=== PATIENT | male | born 1970 | race Caucasian/White ===

== ENCOUNTER 2018-04-01 19:10 | Emergency (ER) | payer BC ==
[~2018-04-01] VITALS: Ht 188 cm; Wt 81.5 kg
[2018-04-01 21:46] LABS: BASOPHILS % (AUTO) 0.2 % (0-1); EOSINOPHILS # (AUTO) 0.1 X10'3 (0-0.9); EOSINOPHILS % (AUTO) 1.6 % (0-6); HEMATOCRIT 42.6 % (42.0-52.0); HEMOGLOBIN 14.9 g/dl (14.0-17.9); LYMPHOCYTES % (AUTO) 11.9 % (21-51); MEAN CORPUSCULAR VOLUME 80.1 FL (78-98); MEAN PLATELET VOLUME 8.9 FL (7.4-10.4); MONOCYTES # (AUTO) 0.7 X10'3 (0-0.9); MONOCYTES % (AUTO) 7.9 % (2-12); NEUTROPHILS # (AUTO) 6.6 X10'3 (1.8-7.7); NEUTROPHILS % (AUTO) 78.4 % (42-75); PLATELET COUNT 174 X10'3 (140-440); RED BLOOD COUNT 5.31 X10'6 (4.70-6.10); RED CELL DISTRIBUTION WIDTH 14.2 % (11.5-14.5); WHITE BLOOD COUNT 8.5 X10'3 (4.5-11.0)
[2018-04-01 21:58] LABS: PARTIAL THROMBOPLASTIN TIME 24 SECONDS (22-32)
[2018-04-01 22:01] LABS: ALANINE AMINOTRANSFERASE 29 U/L (12-78); ALBUMIN/GLOBULIN RATIO 1.1 (1.1-1.5); ALKALINE PHOSPHATASE 111 IU/L (46-116); ANION GAP 10 (8-16); ASPARTATE AMINO TRANSFERASE 23 U/L (10-37); BILIRUBIN,TOTAL 1.8 MG/DL (0.1-1.0); BLOOD UREA NITROGEN 14 MG/DL (7-18); BUN/CREATININE RATIO 17.7 (5.4-32.0); CALCIUM 9.1 MG/DL (8.5-10.1); CHLORIDE 101 MMOL/L (99-107); CREATININE 0.79 MG/DL (0.60-1.10); GLUCOSE 95 MG/DL (70-104); MAGNESIUM 1.6 MG/DL (1.5-2.4); POTASSIUM 3.5 MMOL/L (3.5-5.1); SODIUM 138 MMOL/L (135-145); TOTAL CARBON DIOXIDE 26.9 MMOL/L (24-32); TOTAL PROTEIN 7.7 G/DL (6.4-8.2); eGFR > 90 ML/MIN
[2018-04-01 22:15] LABS: CLARITY,URINE CLEAR (Clear); COLOR,URINE YELLOW (Yellow); GLUCOSE, URINE NEGATIVE (Neg); KETONES,URINE NEGATIVE (Neg); LEUKOCYTE ESTERASE ,URINE NEGATIVE (Neg); NITRITES, URINE NEGATIVE (Neg); OCCULT BLOOD,URINE NEGATIVE (Neg); PROTEIN,URINE NEGATIVE (Neg)
[2018-04-01 22:17] LABS: UA COLLECTION TYPE CLN CATCH MIDSTREAM
[2018-04-01] MEDS ORDERED: morphine 4 MG/ML inj SYRINge IV ONE (23:20)
[2018-04-01] MEDS ORDERED: ondansetron/PF 4mg/2ml inj IV ONE (23:20)
[2018-04-01] MEDS ORDERED: OMEP40CA37 PO (23:27)
[2018-04-01] MEDS ORDERED: ASPI-1265 PO (23:27)
[2018-04-01] MEDS ORDERED: MYCO360T PO (23:27)
[2018-04-01] MEDS ORDERED: TACR1CAP28 PO (23:27)
[2018-04-01] MEDS ORDERED: SOTA80TA73 PO (23:27)
[2018-04-02] MEDS ORDERED: HYDROcodone/acetaminophen 10/325mg tab PO ONE (01:10)
[2018-04-02] MEDS ORDERED: HYDR-565 PO (01:13)
[2018-04-02] MEDS ORDERED: TERB30CR22 TP (01:13)
[2018-04-02 01:17] VITALS: BP 136/107
== END 2018-04-02 01:37 | disposition home or self-care (01) ==
LOC: ER 19:11
DX: R50.9 Fever, unspecified (principal); E80.6 Other disorders of bilirubin metabolism; M79.672 Pain in left foot; M79.671 Pain in right foot; R21 Rash and other nonspecific skin eruption; Z94.4 Liver transplant status; I48.91 Unspecified atrial fibrillation; Z79.82 Long term (current) use of aspirin; Z79.899 Other long term (current) drug therapy
CPT/HCPCS: 36415; 71045; 73620; 80053; 81003; 83605; 83735; 84145; 85025; 85610; 85730; 87040; 93005; 96374; 99285; J2270; J2405